=== PATIENT | female | born 1985 | race African-American/Black ===

== ENCOUNTER 2024-07-07 01:09 | Emergency (ER) | payer OTHER, SELFPAY ==
--- OUTSIDE RECORDS SUMMARY | 2024-07-07 01:10 | XMS_ITS ---
Author Name [facility] Organization Unknown History of Medication Use Medication Directions Dispensed Refills Start Date End Date Stat us traZODone (DESYREL) 150 MG tablet 09/20/2023 active lithium carbonate 600 MG IR capsule Take 1 capsule (600 mg total) by mouth nightly. 09/20/2023 active lithium carbonate 300 MG IR tablet Take 1 tablet (300 mg total) by mouth every morning. 09/20/2023 active levothyroxine (SYNTHROID, LEVOTHROID) 137 MCG tablet TAKE 1 TABLET BY MOUTH 6 DAYS A WEEK 09/20/2023 active lamoTRIgine (LaMICtal) 100 MG tablet TAKE 1 AND 1/2 TABLETS BY MOUTH DAILY AT BEDTIME 09/20/2023 active escitalopram (LEXAPRO) 20 MG tablet Take 1.5 tablets (30 mg total) by mouth daily. 09/20/2023 active Problems Problem Status Onset Date Problem Type Date of Resolution Source Excessive postexertional fatigue active EncounterDiagnosisAct [facility] Brain fog active EncounterDiagnosisAct [facility] Decreased exercise tolerance active EncounterDiagnosis[facility] Post covid-19 condition, unspecified active EncounterDiagnosisAct [facility]
--- NOTE | 2024-07-07 01:25 | ED.PSYCH ---
HPI - Psych General Stated Complaint: Crisis Time Seen by Provider: 07/07/24 01:13 Source: patient and EMS Mode of arrival: EMS Limitations: other History of Present Illness ED Provider: Dr. Desi Malhotra HPI Narrative: Patient comes to the emergency room via ambulance, PD on board, on a Section 12. According to EMS and PD, the patient locked herself out of her residents, got naked and started screaming. When EMS and PD arrived, patient was not making any sense, patient kept screaming. Patient was not giving any medication but was willing to come by ambulance to the ED. Patient admits that she has history of bipolar disorder. EMS reports that when they were EN route to the hospital, in the ambulance patient kept asking the paramedics if they could see and hear the steven in the ambulance. Patient denies SI or HI Related Data Allergies Allergy/AdvReac Type Severity Reaction Status Date / Time No Known Allergies Allergy Verified 07/07/24 01:23 Review of Systems Review of Systems: Constitutional : No Weight loss, No Fever, No Chills, No Night Sweats, No Fatigue, No Malaise ENT/Mouth : No Hearing loss, No Ear Pain, No Nasal Congestion, No Sinus Pain, No Hoarseness, No sore throat, No Rhinorrhea, No Swallowing Difficulty Eyes: No Eye Pain, No Swelling, No Redness, No Foreign Body, No Discharge, No Vision Changes Cardiovascular : No Chest Pain, No SOB, No Dyspnea on Exertion, No Orthopnea, No Edema, No Palpitations Respiratory : No Cough, No Sputum, No Wheezing, No Smoke Exposure, No Dyspnea Gastrointestinal : No Nausea, No Vomiting, No Diarrhea, No Constipation, No abdominal Pain, No Hematochezia, No Melena Genitourinary : no irregular bleeding, No Dysuria, No Urinary Frequency, No Hematuria, No Urinary Incontinence, No Urgency, No Flank Pain, No Urinary Flow Changes, No Hesitancy Musculoskeletal : No joint pain, No Myalgias, No Joint Swelling Skin : No Skin Lesions, No rash Neuro : No Weakness, No Numbness, No Paresthesias, No Loss of Consciousness, No Dizziness, No Headache Psych : Complaining of anxiety, denies depression, admits to half a diagnosis of bipolar disorder. Heme/Lymph: No Bruising, No Bleeding,No Lymphadenopathy Endocrine : No Polyuria, No Polydipsia, No Temperature Intolerance PMFSH Past Medical History Medical History (Updated 07/07/24 @ 01:33 by Desi Malhotra MD) Asthma Bipolar disorder Physical Exam Const: Other: Appearance: Alert. Anxious, seems a bit confused Eyes: Pupils equal, round and reactive to light. ENT: Pharynx normal. Neck: Normal inspection. Neck supple. No lymph nodes noted. No crepitus CVS: Normal heart rate and rhythm. Pulses normal. Normal S1 and S2 Respiratory: No respiratory distress. Breath sounds normal. No Wheezing. No rales Abdomen: Soft and nontender. No rigidity. No distention. Skin: Skin warm and dry. Normal skin color. Normal skin turgor. Extremities: No lower extremity edema. No Lacerations. No Rash Neuro: Oriented X 3. No motor deficit. No sensory deficit. Moving all extremities. No slurred speech. CN 2 through 12 grossly intact Psych: Agitated, redirectable, seems to be responding to internal stimuli Course Course Course Narrative: All of patient's labs pending Patient is on a Section 12 Care team consult pending Medical Decision Making Differential Diagnosis Differential Diagnoses: The differential diagnosis associated with the presentation includes (Bipolar disorder, schizophrenia, polysubstance abuse) Admission/Observation Consideration of admission/observation: Escalation of care including admission/observation considered (Patient is on a Section 12 waiting to be seen by the care team) Critical Care Time Critical Care Time Critical Care Time: Yes Total Critical Care Time: 35 Attestation: I have personally provided critical care time. Time includes review of lab data, radiology results, discussion with consultants, and monitoring for potential decompensation. Intervention performed as documented. Discharge Plan Discharge Clinical Impression: Bipolar disorder Patient Disposition: Still a Patient
[2024-07-07 01:33] VITALS: BP 158/111; BP 158/98; PULSE 73; PULSE 97; RESP 17; TEMP 37.1; O2SAT 100; O2SAT 95; BMI 34.4
[2024-07-07 02:06] LABS: MANUAL DIFF FLAG NO
[2024-07-07 02:07] LABS: Basophils Absolute Auto 0.1 X10*3/uL (0.0-0.2); Basophils Percent Auto 0.9 % (0-2); Eosinophils Absolute Auto 0.1 X10*3/uL (0.0-0.4); Eosinophils Percent Auto 1.4 % (0-4); Hematocrit 44.3 % (37.0-47.0); Hemoglobin 14.8 g/dl (12.0-16.0); Imm Gran Abs Auto 0.03 X10*3/uL (0.00-0.03); Imm Gran Pct Auto 0.3 % (0.0-0.4); Lymphocytes Absolute Auto 1.9 X10*3/uL (1.2-4.9); Lymphocytes Percent Auto 21.4 % (20-40); Mean Corpuscular HGB Conc 33.4 g/dl (31.0-35.0); Mean Corpuscular Hemoglobin 28.9 pg (27.0-33.0); Mean Corpuscular Volume 86.5 fL (80.0-98.0); Mean Platelet Volume 10.5 fL (9.4-12.3); Monocytes Absolute Auto 0.7 X10*3/uL (0.1-1.2); Monocytes Percent Auto 7.8 % (2-11); Neutrophils Absolute Auto 5.9 x10*3/uL (2.0-8.3); Neutrophils Percent Auto 68.2 % (45-73); Platelet Count 276 X10*3/uL (160-400); Red Blood Count 5.12 X10*6/uL (4.20-5.50); White Blood Count 8.6 X10*3/uL (4.8-10.8)
[2024-07-07 02:17] LABS: Lithium 0.37 mmol/L (0.60-1.20)
[2024-07-07] MEDS: traZODone HCL 100 MG TABLET 300 MG PO ×2 (02:28→20:34)
[2024-07-07] MEDS: lamoTRIgine 25 MG TABLET 75 MG PO ×2 (02:28→20:33)
--- NOTE | 2024-07-07 02:28 | PC.NURSE ---
PT overly paranoid regarding the scanner. Asking what it is for, why is it beeping, and believes that it is only happening to her' . PT walked away before receiving her meds at nurses station
[2024-07-07 02:34] LABS: Alanine Aminotransferase 22 U/L (0-31); Albumin Level 4.6 g/dL (3.5-5.0); Alkaline Phosphatase 72 U/L (39-117); Anion Gap 14 (12-20); Aspartate Amino Transferase 30 U/L (5-31); Bilirubin Direct 0.2 mg/dL (0.0-0.5); Bilirubin Total 0.4 mg/dL (0.0-1.0); Blood Urea Nitrogen 7 mg/dL (9-16); Calcium 9.7 mg/dL (8.4-10.2); Carbon Dioxide 24 mmol/L (22-29); Chloride 108 mmol/L (96-108); Creatinine Clr Calc Pharmacy 86.4; Estimated Glomerular Filt Rate 51; Ethanol < 10 mg/dL; Glucose Random 72 mg/dL (60-115); Potassium 3.1 mmol/L (3.3-5.1); Sodium 143 mmol/L (135-145); Total Protein 7.8 g/dL (6.5-8.0)
--- NOTE | 2024-07-07 02:39 | PC.NURSE ---
pt medicated as per sep. Requested and provided juice and a warm blanket.
[2024-07-07 02:43] LABS: TSH reflex Free T4 1.29 uIU/mL (0.32-4.0)
[2024-07-07 07:27] VITALS: RESP 14
--- NOTE | 2024-07-07 07:28 | PC.NURSE ---
Assumed care of patient at 0645, patient appears to be in no apparent distress this am, sleeping, respirations even and unlabored. Per previous RN, patient was very agitated, plan to allow patient to sleep to avoid unnecessary agitation. Continue plan of care for CARE team eval this am
[2024-07-07] MEDS: Escitalopram Oxalate 20 MG TABLET PO (08:26)
[2024-07-07] MEDS: Lithium Carbonate 300 MG CAPSULE PO (08:26)
--- NOTE | 2024-07-07 09:10 | PC.NURSE ---
Attempted to offer patient potassium, patient refused stating Oh no, I dont take that medicine
--- NOTE | 2024-07-07 09:33 | PC.NURSE ---
Pt is awake, ambulating around BH pod, patient is expressive, speech loud, rather confused about being here. Pt is polite, calm and cooperative, concerned about making sure she has her keys. Pt informed that she has no belongings here as she came in naked. Patient is currently on the phone with a friend
--- NOTE | 2024-07-07 10:37 | PC.NURSE ---
Patient's mother came to visit, patient originally okayed the visit however, when she entered the room, patient became very distressed, screaming, crying, demanding she leave. Guest was escorted out, while patient began to scream. This RN sat in pts room to console her, pt screaming that that is not her real mom who came to visit and that she was the devil who stole her family and kids. (Of note, patient has no children and the visitor was her biological mother). Pt did eventually calm down with verbal reassurance. pt provided with warm blankets and TV as a distraction per her request
--- NOTE | 2024-07-07 11:13 | PC.NURSE ---
Patient is visualized self-dialoguing in room to the wall
[2024-07-07 17:24] VITALS: RESP 16
--- NOTE | 2024-07-07 17:25 | PC.NURSE ---
Patient appears to be sleeping, respirations even and unlabored, no apparent distress noted
--- NOTE | 2024-07-07 19:55 | MHC.CARE ---
CARE Team provided Pt an update on plan of care per Pt's request. Pt responded, Well that's not my plan. Pt is irritable with t/w when safety concerns are discussed, however also agrees why they are concerns. Pt dismissed t/w and reported she would reach out to her outpatient providers.
[2024-07-07 20:11] VITALS: BP 157/93; PULSE 95; RESP 20; TEMP 36.6; O2SAT 97
[2024-07-07] MEDS: LORazepam 1 MG TABLET 2 MG PO (20:33)
--- NOTE | 2024-07-08 06:26 | PC.NURSE ---
unable to complete [place] scale at this time d/t pt being asleep
--- NOTE | 2024-07-08 06:35 | PC.NURSE ---
Levothyroxine held at this time d/t pt needing meds to sleep and is still sleeping at this time. MD whelan.
--- NOTE | 2024-07-08 07:56 | PHA.MEDREC ---
Addendum entered by Jay Corcoran 07/09/24 11:51: Spoke to MARTHA Cisneros who was talking to the patient. Patient stated she is still taking the [place] 600mg at bedtime and last had it the night of July 06. Last filled in April for 90 day supply, added to home med list. Addendum entered by Shawanda Hamilton RPh 07/08/24 08:02: Reviewed by [facility] Original Note: Pharmacy Consult ? Medication Reconciliation Pharmacy has reviewed the medication reconciliation done by nursing. Claims match med list.
[2024-07-08] MEDS: Levothyroxine Sodium 112 MCG, Levothyroxine Sodium 25 MCG 137 MCG PO (08:04)
[2024-07-08] MEDS: Escitalopram Oxalate 20 MG TABLET PO (08:04)
[2024-07-08] MEDS: Lithium Carbonate 300 MG CAPSULE PO (08:04)
--- NOTE | 2024-07-08 08:18 | ECG_ITS ---
Test Reason : admission Blood Pressure : / mmHG Vent. Rate : 064 BPM Atrial Rate : 064 BPM P-R Int : 168 ms QRS Dur : 088 ms QT Int : 436 ms P-R-T Axes : 057 032 046 degrees QTc Int : 449 ms Normal sinus rhythm Normal ECG No previous ECGs available Referred By: Kristen Ruiz Electronically Signed By:CATARINO HERNANDEZ
[2024-07-08 14:36] LABS: Appearance Urine Clear; Color Urine Dark Yellow; Glucose Urine UA Negative (Negative); Leukocyte Esterase Urine Trace (Negative); Nitrite Urine Negative (Negative); Specific Gravity - Urine 1.025 (1.005-1.025); UMIC TRIGGER UACC YES; Urine Blood Large (3+) (Negative); Urine Ketones 40 mg/dL (Negative); Urine Protein Trace mg/dL (Neg-Trace)
[2024-07-08 14:37] LABS: UPreg QC Valid YES
[2024-07-08 14:38] LABS: Urine Pregnancy NEGATIVE (NEGATIVE)
[2024-07-08 14:39] LABS: Bacteria Urine None Seen (None Seen); Hyaline Casts Urine 0-2 /LPF (0-2); RBC Urine >20 /HPF (0-2); WBC Urine 0-5 /HPF (0-5)
[2024-07-08 14:47] LABS: Amphetamine Screen Urine POSITIVE (Not Detect); Barbiturates, Urine Not Detected (Not Detect); Benzodiazepines Screen Urine Not Detected (Not Detect); Buprenorphine Scr Not Detected (Not Detect); Cannabinoid Screen Urine POSITIVE (Not Detect); Cocaine Screen Urine Not Detected (Not Detect); Fentanyl, urine Not Detected (Not Detect); Methadone Screen, Urine Not Detected (Not Detect); Opiate Screen Urine Not Detected (Not Detect); Oxycodone Screen Urine Not Detected (Not Detect); Phencyclidine Screen Urine Not Detected (Not Detect)
[2024-07-08 18:07] VITALS: BP 151/93; PULSE 82; RESP 20; TEMP 36.4; O2SAT 100
[2024-07-08] MEDS: lamoTRIgine 25 MG TABLET 75 MG PO (20:19)
[2024-07-08] MEDS: traZODone HCL 100 MG TABLET 300 MG PO (20:19)
[2024-07-09] MEDS: Levothyroxine Sodium 112 MCG, Levothyroxine Sodium 25 MCG 137 MCG PO (05:56)
--- NOTE | 2024-07-09 06:29 | PC.NURSE ---
Patient slept through the night, no distress observed/reported, meds and meals compliant, disposition per care team is sec-12 inpatient bed search, med rec completed, no behavior and safety concerns, VSS, will continue to monitor
--- NOTE | 2024-07-09 09:28 | MHC.CARE ---
Pt [facility] to [facility] for today 07/09/24. ETA is 4pm and the accepting provider is Dr. Mayuri Luz. The address is [address] [place] [address]. Pod RN has been notified of placement and [facility] will be calling to complete rn report for pt. CARE team was notified of placement and asked to send over her CCA form for insurance purposes.
[2024-07-09] MEDS: Lithium Carbonate 300 MG CAPSULE PO (10:59)
[2024-07-09] MEDS: Escitalopram Oxalate 20 MG TABLET PO (10:59)
[2024-07-09 11:00] VITALS: BP 130/91; PULSE 76; RESP 18; TEMP 36.6; O2SAT 100
--- NOTE | 2024-07-09 11:00 | PC.NURSE ---
delay in medication administration at this time d/t pt sleeping. medication now administered at this time. vss and up to date. pt offers no complaints at this time. pt will be transferred to [facility] around 1500 via [facility]. patient notified/aware of plan of care moving forward.
--- NOTE | 2024-07-09 11:30 | PC.NURSE ---
attempted to call [facility] to give report to RN at this time - no answer.
--- NOTE | 2024-07-09 11:35 | PC.NURSE ---
pt requesting to take a shower at this time - pt provided w/ personal hygiene products.
--- NOTE | 2024-07-09 12:00 | PC.NURSE ---
attempted to call to given report to RN for 2nd time at this time - no answer. will reattempt.
[2024-07-09 13:06] LABS: Anion Gap 11 (12-20); Blood Urea Nitrogen 14 mg/dL (9-16); Calcium 9.2 mg/dL (8.4-10.2); Carbon Dioxide 25 mmol/L (22-29); Chloride 107 mmol/L (96-108); Creatinine Clr Calc Pharmacy 83.6; Estimated Glomerular Filt Rate 49; Glucose Random 163 mg/dL (60-115); Potassium 4.2 mmol/L (3.3-5.1); Sodium 139 mmol/L (135-145)
--- NOTE | 2024-07-09 14:30 | PC.NURSE ---
report given to MARTHA Lemons at [facility] at this time.
--- NOTE | 2024-07-09 15:42 | PC.NURSE ---
report given to AMY wong at this time.
[2024-07-09 15:46] VITALS: BP 130/91; PULSE 76; RESP 18; TEMP 36.6; O2SAT 100
[2024-07-11 17:59] LABS: Lamotrigine Lamictal 1.4 mcg/mL (2.5-15.0)
== END 2024-07-09 15:47 ==
PROVIDERS: Emergency Medicine; Emergency Provider Emergency Medicine Emergency Medical Services; PCP Internal Medicine
DX: F31.9 Bipolar disorder, unspecified (principal); R44.0 Auditory hallucinations; R44.1 Visual hallucinations; Z51.81 Encounter for therapeutic drug level monitoring; Z79.899 Other long term (current) drug therapy
CPT/HCPCS: 36415; 80048; 80076; 80175; 80178; 80307; 81001; 81025; 84443; 85025; 93005; 99285; S9485

== ENCOUNTER → 2024-07-08 08:18 | Outpatient (BNV) | payer OTHER, SELFPAY | PROVIDERS: Emergency Provider Emergency Medicine; Visit Provider Internal Medicine | DX: R46.2 Strange and inexplicable behavior (principal) | CPT/HCPCS: 93010 ==